=== PATIENT | female | born 1960 | race African-American/Black ===

== ENCOUNTER 2017-05-10 12:01 | Emergency (ER) | payer SELFPAY ==
[~2017-05-10] VITALS: Ht 165.1 cm; Wt 90.0 kg
[2017-05-10 12:04] VITALS: BP 173/87; PULSE 72; RESP 16; TEMP 98; O2SAT 100
--- NOTE | 2017-05-10 12:11 | PD ---
Physical Exam Date Seen by Provider: May 10, 2017 Time Seen by Provider: 12:08 Narrative 56 YOBF C/O R BREAST PAIN . TXED FOR R BREAST ABSCESS. JUST FINISHED YES. PAIN 5/10 BURNING Data Data Last Documented VS Vital Signs Date Time Temp Pulse Resp B/P (MAP) Pulse Ox O2 Delivery O2 Flow Rate FiO2 05/10/17 12:04 98.0 72 16 173/87 (115) 100 Room Air MDM Medical Record Reviewed: No Supervised Visit with AARON: Yes Nayan Canales May 10, 2017 12:11
--- NOTE | 2017-05-10 13:03 | PD ---
HPI Chief Complaint: Skin Problem Time Seen by Provider: 12:55 Travel History International Travel<30 days: Yes Contact w/Intl Traveler<30days: Yes Name of Country Traveled to: traveled from [place] in March 2017 Traveled to known affect area: No History of Present Illness HPI This patient was examined in the presence of a female nurse. 56-year-old female presents for evaluation of right breast tenderness. She reports that 2 weeks ago she developed a diagnosed abscess to the inferior aspect of the right breast tissue. She reports that the abscess spontaneously burst and 11 years ago she was seen in an urgent care center where she was prescribed Bactrim. She finished the Bactrim yesterday. She reports significant improvement in her symptoms in the interim however she has residual pain at the site of the abscess which prompted evaluation today. Pain is a burning sensation which is constant, worse with palpation. She denies any residual drainage, fevers or chills. She denies any nipple discharge. She has never had this problem before. Denies any significant past medical history. No other complaints. PFSH Social History Alcohol Use: No Tobacco Use: No Allergies-Medications (Allergen,Severity, Reaction): Coded Allergies: No Known Allergies (Verified Allergy, Unknown, 05/10/17) Reported Meds & Prescriptions Reported Meds & Active Scripts Active Bactrim DS (Sulfamethoxazole-Trimethoprim) 800-160 Mg Tab 1 Tab PO BID Review of Systems Except as stated in HPI: all other systems reviewed are Neg Physical Exam Narrative Examined in the presence of a female nurse GENERAL: Well-developed well-nourished female in no acute distress SKIN: Warm and dry. Examination of the right breast tissue reveals an area of slight induration to the right breast tissue in the inferior aspect at the 6 o' clock position. There is a small wound that appears to have recently healed. There is no drainage or palpable fluctuance. No palpable masses. No axillary lymphadenopathy. HEAD: Atraumatic. Normocephalic. EYES: Pupils equal and round. No scleral icterus. No injection or drainage. ENT: No nasal bleeding or discharge. Mucous membranes pink and moist. NECK: Trachea midline. No JVD. CARDIOVASCULAR: Regular rate and rhythm. No murmur appreciated. RESPIRATORY: No accessory muscle use. Clear to auscultation. Breath sounds equal bilaterally. GASTROINTESTINAL: Abdomen soft, non-tender, nondistended. Hepatic and splenic margins not palpable. NEUROLOGICAL: Awake and alert. No obvious cranial nerve deficits. Motor grossly within normal limits. Normal speech. Data Data Last Documented VS Vital Signs Date Time Temp Pulse Resp B/P (MAP) Pulse Ox O2 Delivery O2 Flow Rate FiO2 05/10/17 12:04 98.0 72 16 173/87 (115) 100 Room Air Orders Orders Us Breast Unilateral (05/10/17 ) MDM Medical Decision Making Medical Screen Exam Complete: Yes Emergency Medical Condition: Yes Medical Record Reviewed: Yes Differential Diagnosis Resolving breast abscess versus cellulitis versus mastoiditis versus malignancy Narrative Course An ultrasound of the right breast has been performed revealing: There is a minimally greater than 1 cm hypoechoic area in the superficial subcutaneous tissues of the right breast at about the 6: 00 position 1 cm from the nipple associated with some hyperemia. There is no discrete fluid echogenicity collection, rather this is likely a focus of phlegmonous change. Physical examination is very reassuring. The plan will be to discharge the patient with additional 7 day course of Bactrim for her residual cellulitic changes. Discussed signs and symptoms don't warrant her returning to the emergency room. She is stable for discharge. Diagnosis Primary Impression: Cellulitis of right breast Additional Instructions: Continue warm compresses several times a day 10-15 minutes at a time. Antibiotics as prescribed. If you develop increasing pain, soft tissue swelling , drainage, fevers, return to the emergency room. Med/Other Pt SpecificInfo: Prescription(s) given Scripts Sulfamethoxazole-Trimethoprim (Bactrim DS) 800-160 Mg Tab 1 TAB PO BID for Infection, #14 TAB 0 Refills Prov: Natalie Evans MD 05/10/17 Disposition: 01 DISCHARGE HOME Condition: Stable Clint Dominguez May 10, 2017 13:03
--- NOTE | 2017-05-10 16:23 | RADRPT ---
EXAM DATE/TIME: 05/10/2017 14:48 [facility] COMPARISON: No previous studies available for comparison. INDICATIONS : Right breast abscess. MEDICAL HISTORY : Right breast abscess. SURGICAL HISTORY : Pelvic scraping to check for cancer. ENCOUNTER: Initial ACUITY: 1 week PAIN SCORE: 0/10 LOCATION: Right breast. FINDINGS: There is a minimally greater than 1 cm hypoechoic area in the superficial subcutaneous tissues of the right breast at about the 6: 00 position 1 cm from the nipple associated with some hyperemia. There is no discrete fluid echogenic ity collection, rather this is likely a focus of phlegmonous change. CONCLUSION: Small superficial abnormality as above Tolu Montanez MD on May 10, 2017 at 16:19 Board Certified Radiologist. This report was verified electronically.
[2017-05-10] MEDS ORDERED: BACT800T5 PO (16:28)
[2017-05-10 16:41] VITALS: BP 134/88
== END 2017-05-10 16:43 | disposition home or self-care (01) ==
LOC: NEPD 12:01
DX: N61.0 Mastitis without abscess (principal)
CPT/HCPCS: 76642